=== PATIENT | male | born 1965 | race Caucasian/White ===

== ENCOUNTER 2016-10-27 23:57 | Emergency (ER) | payer MEDICARE, MEDICAID ==
[~2016-10-27 23:57] MED LIST: DILAUDID8 MG PO; FENTANYL1 PATC TOP; LEXAPRO; LEXAPRO20 MG PO; LISINOPRIL; LISINOPRIL10 MG PO; NEXIUM; NEXIUM40 MG PO; OXYCODONE/APAP PO; OXYCONTIN10 MG PO; PERCOCET 5/3251 TAB PO; WELLBUTRIN; WELLBUTRIN XL150 MG PO
[2016-10-28] MEDS ORDERED: POLYETHYLENE G255 G1 PO (00:38)
[2016-10-28] MEDS ORDERED: HYDROMORPHONE HC8 M1 PO (00:39)
[2016-10-28] MEDS ORDERED: DURAGESIC1 EAC4 TP (00:39)
[2016-10-28] MEDS ORDERED: BISACODYL5 M1 PO (00:40)
[2016-10-28] MEDS ORDERED: SENNA LAX8.6 M2 PO (00:41)
[2016-10-28] MEDS ORDERED: AMLODIPINE BESY10 M1 PO (00:42)
[2016-10-28] MEDS ORDERED: ESOMEPRAZOLE MA40 MG PO (00:43)
[2016-10-28] MEDS ORDERED: FLUCONAZOLE200 M2 PO (00:45)
[2016-10-28] MEDS ORDERED: CAL-GEST200 MG PO (00:46)
[2016-10-28] MEDS ORDERED: ORBACTIV400 MG IV (01:05)
[2016-11-30] MEDS ORDERED: NO HOME MEDICATION ×2 (00:25→00:26)
== END 2016-10-28 01:56 ==
LOC: EDMED 23:57
DX: R60.0 Localized edema (principal); I10 Essential (primary) hypertension; K21.9 Gastro-esophageal reflux disease without esophagitis; G47.33 Obstructive sleep apnea (adult) (pediatric); Z86.14 Personal history of Methicillin resistant Staphylococcus aureus infection; Z85.46 Personal history of malignant neoplasm of prostate; F17.200 Nicotine dependence, unspecified, uncomplicated; Z79.899 Other long term (current) drug therapy